=== PATIENT | female | born 1995 | race Caucasian/White ===

== ENCOUNTER → 2017-07-09 | Outpatient (CLI) | payer BC, OTHER ==
[~2017-07-09] MED LIST: SERT-234 PO
--- NOTE | 2017-07-09 15:41 | ECHOCARDIOGRAM REPORT ---
*NOTICE TO RECEIVING REPUBLICAN AGENCY This information is strictly Confidential and protected under [place] law. [place] law prohibits you from making any further disclosure of this information unless further disclosure is expressly permitted by the written consent of the person to whom it pertains or is authorized by law. A general authorization for the release of medical or other information is not sufficient for this purpose. Hospital accepts no responsibility if the information is made available to any other person, INCLUDING THE PATIENT. Interpretation Summary * Name: CHAN ABERNATHY Study Date: 07/09/2017 12:49 PM BP: 121/75 mmHg * Patient Location: [facility] HR: 83 * : 1995 (M/d/yyyy) Gender: Female Height: 67 in * Age: 21 yrs Ethnicity: CA Weight: 120 lb * Ordering Physician: Bernie Tatum * Referring Physician: Bernie Tatum * Performed By: Claudio Key RCS * * Reason For Study: Abnormal EKG * BSA: 1.6 m2 * -- Conclusions -- * 1. Normal left ventricular size and systolic function. EF 60-65%. No regional wall motion abnormalities. No left ventricular hypertrophy. No significant diastolic dysfunction. * 2. No significant valvular abnormalities visualized. * 3. Normal estimated right ventricular systolic pressure. * 4. No prior study available for comparison. Procedure Details * A complete two-dimensional transthoracic echocardiogram was performed (2D, M-mode, Doppler and color flow Doppler). Left Ventricle * Normal left ventricular size and systolic function. EF 60-65%. No regional wall motion abnormalities. No left ventricular hypertrophy. No significant diastolic dysfunction. Right Ventricle * The right ventricle is normal in size and function. * The right ventricular systolic function is normal as assessed by tricuspid annular plane systolic excursion (TAPSE) (normal >1.5 cm). Atria * The left atrial size is normal. * Right atrial size is normal. * There is no evidence of atrial septal defect, but resolution does not allow assessment for a patent foramen ovale. Mitral Valve * The mitral valve leaflets appear normal. There is no evidence of stenosis, fluttering, or prolapse. * There is trace mitral regurgitation. Tricuspid Valve * The tricuspid valve is not well visualized, but is grossly normal. * There is no tricuspid stenosis. * There is trace tricuspid regurgitation. Aortic Valve * The aortic valve is trileaflet. * No hemodynamically significant valvular aortic stenosis. * No aortic regurgitation is present. Pulmonic Valve * The pulmonary valve is inadequately visualized, but the Doppler data is adequate for interpretation. * There is no pulmonic valvular stenosis. * Trace pulmonic valvular regurgitation. Great Vessels * The aortic root is normal size. * Aortic arch of normal dimension. Pericardium/Pleural * There is no pericardial effusion. Great Vessels * Normal inferior vena cava size and collapsability with sniff indicates a normal right atrial pressure of 3 mmHg * Normal hepatic venous flow pattern. MMode 2D Measurements and Calculations IVSd 0.85 cm IVSs 1.0 cm LVIDd 4.1 cm LVIDs 2.7 cm LVPWd 0.79 cm IVS/LVPW 1.1 FS 35.0 % EDV(Teich) 75.9 ml ESV(Teich) 26.8 ml EF(Teich) 64.7 % EDV(cubed) 70.9 ml ESV(cubed) 19.5 ml EF(cubed) 72.5 % % IVS thick 20.2 % LV mass(C)d 102.5 grams LV mass(C)dI 63.0 grams/m\S\2 SV(Teich) 49.1 ml SI(Teich) 30.2 ml/m\S\2 SV(cubed) 51.4 ml SI(cubed) 31.6 ml/m\S\2 Ao root diam 2.9 cm Ao root area 6.6 cm\S\2 ACS 1.5 cm LA dimension 3.2 cm LA/Ao 1.1 LVAd ap4 30.2 cm\S\2 LVLd ap4 8.6 cm EDV(MOD-sp4) 102.8 ml EDV(sp4-el) 89.8 ml LVAs ap4 16.6 cm\S\2 LVLs ap4 6.7 cm ESV(MOD-sp4) 38.3 ml ESV(sp4-el) 34.8 ml EF(MOD-sp4) 62.8 % EF(sp4-el) 61.2 % SV(MOD-sp4) 64.5 ml SI(MOD-sp4) 39.6 ml/m\S\2 SV(sp4-el) 55.0 ml SI(sp4-el) 33.8 ml/m\S\2 Doppler Measurements and Calculations MV E max maddie 52.1 cm/sec MV A max maddie 36.6 cm/sec MV E/A 1.4 MV P1/2t max maddie 58.5 cm/sec MV P1/2t 75.3 msec MVA(P1/2t) 2.9 cm\S\2 MV dec slope 227.6 cm/sec\S\2 MV dec time 0.21 sec Ao V2 max 102.2 cm/sec Ao max PG 4.2 mmHg Ao max PG (full) 1.2 mmHg LV V1 max PG 3.0 mmHg LV V1 max 87.0 cm/sec PA V2 max 79.0 cm/sec PA max PG 2.5 mmHg TR max maddie 162.3 cm/sec RVSP(TR) 13.5 mmHg RAP systole 3.0 mmHg
== END | disposition home or self-care (01) ==
LOC: C.CPL 12:48
PROVIDERS: ATTEND Family Medicine
DX: R94.31 Abnormal electrocardiogram [ECG] [EKG] (principal)

== ENCOUNTER 2017-08-24 02:38 | Emergency (ER) | payer OTHER ==
[~2017-08-24] VITALS: Ht 170.2 cm; Wt 61.1 kg
[2017-08-24 02:38] VITALS: TEMP 36.5; Ht 170.2 cm; Wt 61.1 kg
[2017-08-24] MEDS ORDERED: SODIUM CHLORIDE 0.9% 1000ML 1,000 ML IV STA (02:48)
[2017-08-24] MEDS ORDERED: LORAZEPAM 2 MG/ML 1 ML VIAL IV STA (02:48)
[2017-08-24 03:04] LABS: EOS % 1.7 %; EOS ABS # 0.11 K/uL (0-0.5); HEMATOCRIT 36.4 % (37-47); HEMOGLOBIN 13.1 g/dL (12.0-16.0); IG# 0.01 K/uL (0.00-0.02); LYMPH % 49.9 %; MEAN CELL VOLUME 86.9 fL (80-100); MEAN CORPUSCULAR HEMOGLOBIN 31.3 pg (25-34); MEAN PLATELET VOLUME 9.3 fL (7.4-10.4); MONO ABS # 0.32 K/uL (0.11-0.59); NEUT % 43.2 %; NEUT ABS # 2.77 K/uL (1.4-6.5); PLATELET COUNT 250 K/uL (130-400); RED CELL DISTRIBUTION WIDTH CV 12.3 % (11.5-14.5); RED CELL DISTRIBUTION WIDTH SD 39.1 fL (36.4-46.3); WHITE BLOOD COUNT 6.41 K/uL (4.8-10.8)
[2017-08-24 03:24] LABS: CALCIUM 8.8 mg/dl (8.5-10.1); CREATININE 0.66 mg/dl (0.60-1.20); POTASSIUM 3.3 mmol/L (3.5-5.1)
[2017-08-24] MEDS ORDERED: ATIVAN 1MG HOMEPACK PO ONE (03:30)
[2017-08-24] MEDS ORDERED: POTASSIUM CHLORIDE 10 MEQ TABCR PO STA (03:38)
--- NOTE | 2017-08-24 03:38 | EMERGENCY ROOM VISIT NOTE ---
History First contact with patient: 02:39 Chief Complaint: ANXIETY Stated Complaint: ANXIETY ATTACK/ ALCOHOL OVERDOSE History of Present Illness The patient is a 22 year old female who presents to the Emergency Room with complaints of panic attacks night he has been drinking alcohol. Patient states she suffers from anxiety. She is supposed to start a new anxiety medicine tomorrow. Patient states she became overwhelmed and then went into an anxiety attack. Patient states EMS gave her Ativan she is feeling better now just slightly shaky. Patient denies chest pain, dyspnea, abdominal pain, drug use, fever, chills, cough, congestion. No supplements or any enhancements. Patient had panic attacks before. No other concerns. Patient denies suicidal or homicidal ideations. Patient states she feels safe with her boyfriend. Review of Systems An 10 system review of systems was completed with positives and pertinent negatives listed in the HPI. Past Medical/Surgical History Anxiety, panic attacks Social History Smoking Status: Never Smoker Alcohol Use: occasionally Drug Use: none Marital Status: in relationship Housing Status: lives with roommate Occupation Status: [employer] student Current/Historical Medications Scheduled Sertraline (Zoloft), 100 MG PO QAM Physical Exam Vital Signs Date Time Temp Pulse Resp B/P (MAP) Pulse Ox O2 Delivery O2 Flow Rate FiO2 08/24/17 02:48 107 08/24/17 02:38 36.5 111 18 116/69 95 Room Air Physical Exam VITALS: Vitals are noted on the nurse's note and reviewed by myself. Vital signs mildly tachycardic. GENERAL: Pleasant female anxious appearing with EtOH odor, in no acute distress , nondiaphoretic, well-developed well-nourished. SKIN: The skin was without rashes, erythema, edema, or bruising. There is no tenting of the skin. Capillary reflex less than 2 seconds. HEAD: Normocephalic atraumatic. EARS: External auditory canals clear, tympanic membranes pearly rios without erythema or effusion bilaterally. EYES: Pupils equal round and reactive to light and accommodation. Conjunctivae with injection, sclerae without icterus. Extraocular movements intact. NOSE: Patent, turbinates without inflammation or discharge. MOUTH: Mucous membranes moist. Pharynx without erythema or exudate. Uvula midline. Airway patent. Tongue does not deviate. NECK: Supple without nuchal rigidity. No lymphadenopathy. No thyromegaly. Cervical spine is nontender. No JVD. HEART: Tachycardic rate and rhythm without murmurs gallops or rubs. LUNGS: Clear to auscultation bilaterally without wheezes, rales or rhonchi. No retractions or accessory muscle use. ABDOMEN: Positive bowel sounds x 4. Normal tympanic percussion. Soft, nontender, without masses or organomegaly. Adorno sign negative. No guarding or rebound tenderness. No CVA tenderness MUSCULOSKELETAL: No muscle atrophy, erythema, or edema noted. NEURO: Patient was alert and oriented to person place and time. Normal sensation to light and sharp touch. No focal neurological deficits. Psych: Pleasant and cooperative good insight Medical Decision & Procedures Laboratory Results 08/24/17 02:55 Red Blood Count 4.19, Mean Corpuscular Volume 86.9, Mean Corpuscular Hemoglobin 31.3, Mean Corpuscular Hemoglobin Concent 36.0, Mean Platelet Volume 9.3, Neutrophils (%) (Auto) 43.2, Lymphocytes (%) (Auto) 49.9, Monocytes (%) (Auto) 5.0, Eosinophils (%) (Auto) 1.7, Basophils (%) (Auto) 0.0, Neutrophils # (Auto) 2.77, Lymphocytes # (Auto) 3.20, Monocytes # (Auto) 0.32, Eosinophils # (Auto) 0.11, Basophils # (Auto) 0.00 08/24/17 02:55 Test 08/24/17 02:55 White Blood Count 6.41 K/uL (4.8-10.8) Red Blood Count 4.19 M/uL (4.2-5.4) Hemoglobin 13.1 g/dL (12.0-16.0) Hematocrit 36.4 % (37-47) Mean Corpuscular Volume 86.9 fL (80-100) Mean Corpuscular Hemoglobin 31.3 pg (25-34) Mean Corpuscular Hemoglobin Concent 36.0 g/dl (32-36) Platelet Count 250 K/uL (130-400) Mean Platelet Volume 9.3 fL (7.4-10.4) Neutrophils (%) (Auto) 43.2 % Lymphocytes (%) (Auto) 49.9 % Monocytes (%) (Auto) 5.0 % Eosinophils (%) (Auto) 1.7 % Basophils (%) (Auto) 0.0 % Neutrophils # (Auto) 2.77 K/uL (1.4-6.5) Lymphocytes # (Auto) 3.20 K/uL (1.2-3.4) Monocytes # (Auto) 0.32 K/uL (0.11-0.59) Eosinophils # (Auto) 0.11 K/uL (0-0.5) Basophils # (Auto) 0.00 K/uL (0-0.2) RDW Standard Deviation 39.1 fL (36.4-46.3) RDW Coefficient of Variation 12.3 % (11.5-14.5) Immature Granulocyte % (Auto) 0.2 % Immature Granulocyte # (Auto) 0.01 K/uL (0.00-0.02) Anion Gap 10.0 mmol/L (3-11) Est Creatinine Clear Calc Drug Dose 129.0 ml/min Estimated GFR () 145.3 Estimated GFR (Non- 125.4 BUN/Creatinine Ratio 17.2 (10-20) Calcium Level 8.8 mg/dl (8.5-10.1) Thyroid Stimulating Hormone (TSH) 4.460 uIu/ml (0.300-4.500) Human Chorionic Gonadotropin, Qual NEG (NEG) Ethyl Alcohol mg/dL 140.0 mg/dl (0-3) Medications Administered Medications (Trade) Dose Ordered Sig/Soniya Route Start Time Stop Time Status Last Admin Dose Admin Sodium Chloride 1,000 ml @ 999 mls/hr Q1H1M STAT IV 08/24/17 02:48 08/24/17 03:48 08/24/17 02:59 999 MLS/HR Lorazepam (Ativan Inj) 1 mg NOW STAT IV 08/24/17 02:48 08/24/17 02:49 DC 08/24/17 02:57 1 MG ED Course Prior records/ancillary studies reviewed. Triage Nursing notes reviewed. Additional history obtained from EMS The patient's history was concerning for possible psychiatric disturbance. Differential diagnosis: Etiologies such as panic attack, mood disorder, infection, hypoglycemia, electrolyte abnormalities, cardiac sources, intracerebral event, toxicologic, neurologic, as well as others were entertained. Physical examination: The physical examination was performed as above and was completely benign. No emergent medical pathologies were noted. ER treatment provided: Abdomen, IV fluids On reassessment the patient felt better. Diagnostic interpretation by me: The labs revealed euthyroid. Hypokalemia. Alcohol 140 Exam and history seem consistent with panic attacks. Patient suffers from anxiety. She felt much better to being medicated as above. She had no suicidal or homicidal ideations. She is well-appearing. She is advised to rest , decrease stress, try yoga and/or Pilates and meditation to decrease her anxiety and stress levels and follow-up with her therapist and family care in a few days or here in the ER sooner for anxiety, chest pains, behavioral health concerns, suicidal homicidal ideations, worsening signs or symptoms or as needed. Patient felt safe being discharged in the care of her boyfriend. Patient was agreeable to treatment plan. By the evaluation outlined above emergent etiologies such as infection, hypoglycemia, electrolyte abnormalities, cardiac sources, intracerebral event, toxicologic, neurologic,as well as others were deemed relatively unlikely. It appears the patient is dealing with a psychiatric disturbance. The pt informed about the findings as listed above. All questions were answered and pleased with the treatment. Return instructions were outlined and the patient was discharged in stable condition. Outpatient prescription management: Ativan home pack Referral: The patient was referred back to their primary care physician and/or therapist for follow-up in 2 to 3 days for a recheck of the current condition. Case reviewed with my attending The chart was completed utilizing [employer] Speech voice recognition software. Grammatical errors, random word insertions, pronoun errors, and incomplete sentences are an occassional consequence of this system due to software limitations, ambient noise, and hardware issues. Any formal questions or concerns about the content, text, or information contained within the body of this dictation should be directly addressed to the physician cashier assistant for clarification. Medical Decision As above Medication Reconcilliation Current Medication List: was personally reviewed by me Blood Pressure Screening Patient's blood pressure: Normal blood pressure Impression Primary Impression: Acute anxiety Departure Information Dispostion Home / Self-Care Condition GOOD Referrals Bernie Tatum M.D. (PCP) Patient Instructions My [facility] Additional Instructions DO NOT drive, drink alcohol, operate machinery, or perform dangerous activities today. You were given medications in the ER that can affect your ability to safely function or operate a vehicle. Ativan 1 m tablet every 8 hours as needed for anxiety. No alcohol or driving on this medication. Rest. Decrease stress. Try yoga and/or Pilates to decrease stress and anxiety. Recommend meditation. Continue current medications. Recommend that you do not drink alcohol with your antidepressants. Return to the ER immediately for worsening or persistent anxiety, abdominal pain , vomiting, fevers, chest pains, difficulty breathing, black or bloody stools, worsening of your condition, or as needed. Follow up with your primary physician and/or therapist in 2-3 days for a recheck of your current condition.
[2017-08-24 05:16] VITALS: BP 116/72; PULSE 72; O2SAT 98
== END 2017-08-24 05:21 | disposition home or self-care (01) ==
LOC: EDBD 02:38 → C.EDA 02:39
DX: F41.9 Anxiety disorder, unspecified (principal)